=== PATIENT | female | born 1985 | race Caucasian/White ===

== ENCOUNTER 2024-04-08 00:08 | Emergency (ER) | payer OTHER, SELFPAY ==
[2024-04-08 00:09] VITALS: BP 123/70; PULSE 72; RESP 17; TEMP 36.1; O2SAT 100
--- NOTE | 2024-04-08 01:00 | ED.BACK ---
HPI - Back Pain/Injury General Chief Complaint: Back Pain/Injury Stated Complaint: back injury Time Seen by Provider: 04/08/24 00:55 History of Present Illness HPI Narrative: Patient is a pleasant 38-year-old female without past medical history here today with lower back pain. Patient states that the back pain has been present for about 4 days. It seems to be steadily worsening. She did attempt Tylenol, ibuprofen, topical creams, lidocaine patch without improvement of symptoms. Patient notes that the back pain is in her lower back and is a bandlike sensation across her lower back, denies any midline pain. No trauma. She denies any radiation down her legs. Denies any numbness or weakness in her legs. Denies any bowel or bladder incontinence. Denies any saddle anesthesia. No fever or chills, no IVDU history, no personal history of cancer. Related Data Allergies Allergy/AdvReac Type Severity Reaction Status Date / Time No Known Allergies Allergy Verified 04/08/24 00:09 Review of Systems Review of Systems: All systems reviewed & are unremarkable except as noted in HPI and below Exam Narrative: GENERAL: Well-appearing, well-nourished, and in no acute distress. HEAD: Normocephalic, atraumatic. EYES: PERRLA and EOMI. ENT: Nares clear. Mucous membranes moist. NECK: Supple. CHEST: Clear to auscultation. No respiratory distress. HEART: Regular rate and rhythm. Normal peripheral pulses. ABDOMEN: Soft, nontender, nondistended. EXTREMITIES: Normal range of motion. No edema. No midline lumbar tenderness. Mild bilateral paraspinal tenderness over the lumbar region. SKIN: Warm, dry, no rash. NEURO: No focal deficits. Alert and oriented x3. PSYCH: Normal mood and affect. Course Course Emergency Course: Chart review performed. Patient here with back pain x 3 days. Triage vitals normal. No prior visits in our system. Patient seen evaluated, nontoxic appearing. She has atraumatic back pain with no red flag symptoms. Will treat symptomatically. Patient agreeable to workup and plan. UA and urine test are negative. Toradol, Flexeril, Dorr ordered. Patient does have a ride home. Continued pain after initial medications, Valium ordered. Patient has had some relief of her pain. We will give her a note for work, advised rest. Will send in Flexeril, ibuprofen, Tylenol, lidocaine patches to the pharmacy. Advised close follow-up with her primary care doctor. The results of pertinent diagnostic studies and exam findings were discussed. The patient?s provisional diagnosis and plan of care were discussed with the patient and present family. The patient and/or present family expressed understanding of the diagnosis and plan. The nurse was instructed to provide written instructions and appropriate follow-up information. The patient understands their need and responsibility to obtain additional follow-up as instructed. The risks of medications administered and prescribed were discussed with the patient and family present. Vital Signs Vital signs: Vital Signs Temperature 97.0 F L 04/08/24 00:09 Pulse Rate 72 04/08/24 00:09 Respiratory Rate 17 04/08/24 00:09 Blood Pressure 123/70 04/08/24 00:09 Pulse Oximetry 100 04/08/24 00:09 Oxygen Delivery Room Air 04/08/24 00:09 Temperature 97.0 F L 04/08/24 00:09 Pulse Rate 60 04/08/24 03:05 Respiratory Rate 16 04/08/24 03:05 Blood Pressure 125/68 04/08/24 03:05 Pulse Oximetry 100 04/08/24 03:05 Oxygen Delivery Room Air 04/08/24 00:09 MDM - Back Pain/Injury Lab Data Labs: Lab Results 04/08/24 Range/Units 01:38 Urine Color Yellow (Yellow) Urine Appearance Clear (Clear) Urine pH 5.5 (5.0-9.0) Ur Specific [place] 1.010 (1.001-1.035) Urine Protein Negative (Negative) mg/dL Urine Glucose (UA) Negative (Negative) mg/dL Urine Ketones Negative (Negative) mg/dL Ur Blood (Man) Negative (Negative)
[2024-04-08 01:41] VITALS: BP 114/74; PULSE 60; RESP 16; O2SAT 100
[2024-04-08 01:48] LABS: Appearance Urine Clear (Clear); Bilirubin Urine Negative (Negative); Blood Urine Negative (Negative); Color Urine Yellow (Yellow); Glucose Urine UA Negative (Negative); Ketones Urine Negative (Negative); Leukocyte Esterase Ur Negative LEU/UL (Negative); Nitrate Urine Negative (Negative); Protein Urine Negative (Negative); Urobilinogen Urine 0.2 mg/dL (<2.0); pH Urine 5.5 (5.0-9.0)
[2024-04-08 01:58] LABS: Add Urine Microscopic? NO
[2024-04-08] MEDS: CYCLOBENZAPRINE HCL 5 MG TABLET PO (02:11)
[2024-04-08] MEDS: HYDROcodone/acetaminophen (*CRX) 5-325 MG TABLET 1 TAB PO (02:11)
[2024-04-08] MEDS: KETOROLAC 30 MG/ML VIAL (*BKC) 15 MG IM (02:12)
[2024-04-08] MEDS: diazePAM (*CRX) 5 MG TABLET 10 MG PO (02:51)
[2024-04-08 02:55] VITALS: BP 138/100; PULSE 65; RESP 16; O2SAT 100
[2024-04-08 03:05] VITALS: BP 125/68; PULSE 60; RESP 16; O2SAT 100
== END 2024-04-08 03:31 | disposition home or self-care (01) ==
PROVIDERS: Emergency Provider Student in an Organized Health Care Education/Training Program
DX: S39.012A Strain of muscle, fascia and tendon of lower back, initial encounter (principal); X58.XXXA Exposure to other specified factors, initial encounter
CPT/HCPCS: 81003; 81025; 96372; 99283; A9270; J1885